=== PATIENT | male | born 1960 | race Caucasian/White ===

== ENCOUNTER 2017-01-01 10:57 | Outpatient (CLI) | payer OTHER ==
--- NOTE | 2017-01-01 13:07 | RAD ---
LUMBAR SPINE TWO VIEWS: History: Lumbar disc disease. Low back pain. Right leg radiation. Comparison: 04-23-16 FINDINGS: Pedicle screws on the right at L5-S1 again noted. Loss of L5-S1 disc space. Degenerative spurring fr om the lumbar vertebrae is unchanged. The lumbar vertebrae continue to maintain height and alignment . The other disc spaces are preserved. Mild facet arthrosis and hypertrophy. IMPRESSION: Degenerative and post-operative changes of the lumbar spine appear stable from 04-23-16. POS: JOSE
== END 2017-01-01 10:58 | disposition home or self-care (01) ==
LOC: TBSIIMAG 10:57
PROVIDERS: ATTEND Physician Assistant
DX: M54.5 Low back pain (principal); M47.816 Spondylosis without myelopathy or radiculopathy, lumbar region
CPT/HCPCS: 72100